=== PATIENT | female | born 1955 | race Caucasian/White ===

== ENCOUNTER → 2023-08-21 16:23 | Outpatient (REF) | payer MEDICARE, OTHER, SELFPAY | LOC: WDC 16:23 | PROVIDERS: ATTENDING PHYSICIAN Student in an Organized Health Care Education/Training Program | DX: R92.8 Other abnormal and inconclusive findings on diagnostic imaging of breast (principal) | CPT/HCPCS: 77061; 77065 ==

== ENCOUNTER → 2023-08-23 12:44 | Outpatient (REF) | payer MEDICARE, OTHER, SELFPAY | LOC: HWRAD 12:44 | PROVIDERS: ATTENDING PHYSICIAN Internal Medicine Cardiovascular Disease; FAMILY PHYSICIAN Student in an Organized Health Care Education/Training Program | DX: E78.00 Pure hypercholesterolemia, unspecified (principal); Z82.49 Family history of ischemic heart disease and other diseases of the circulatory system | CPT/HCPCS: 75571 ==

== ENCOUNTER → 2023-10-04 14:04 | Outpatient (REF) | payer MEDICARE, OTHER, SELFPAY | LOC: DHCBS MAIN 14:04 | PROVIDERS: ATTENDING PHYSICIAN Internal Medicine Cardiovascular Disease; FAMILY PHYSICIAN Student in an Organized Health Care Education/Training Program | DX: R00.2 Palpitations (principal); I10 Essential (primary) hypertension | CPT/HCPCS: 93306 ==

== ENCOUNTER → 2024-01-01 09:44 | Outpatient (REF) | payer MEDICARE, OTHER, SELFPAY | LOC: DHSLP 09:44 | PROVIDERS: ATTENDING PHYSICIAN Internal Medicine Cardiovascular Disease | DX: G47.33 Obstructive sleep apnea (adult) (pediatric) (principal) | CPT/HCPCS: 95800 ==

== ENCOUNTER → 2024-01-15 12:19 | Outpatient (REF) | payer MEDICARE, OTHER, SELFPAY | LOC: WDC 12:19 | PROVIDERS: ATTENDING PHYSICIAN Student in an Organized Health Care Education/Training Program | DX: Z12.31 Encounter for screening mammogram for malignant neoplasm of breast (principal) | CPT/HCPCS: 77063; 77067 ==

== ENCOUNTER 2024-01-29 08:51 | Day surgery (SDC) | payer MEDICARE, OTHER, SELFPAY ==
[2024-01-18 10:33] VITALS: BMI 28.1
[2024-01-29] VITALS (9 sets, daily range): BP systolic 125–180; BP diastolic 65–87; BMI 28.0
--- NOTE | 2024-01-29 10:46 | ITS.CL.ABL ---
Head Of Art - Ablation
Ablation
Procedure Report:
Primary Feather Drying Machine Operator: Dr. Azam Toribio
Procedure Date: 01/29/2024
Patient History:
Patient is a pleasant 68-year-old female with a past medical history significant for hypertension, hypercholesterolemia, coronary artery calcifications, palpitations, and paroxysmal symptomatic atrial fibrillation.
See H&P for complete details.
Indication:
Symptomatic paroxysmal atrial fibrillation
Arrhythmia Specific History:
Prior Medical Therapies for Rate and Rhythm Control:
X Beta-marielos
[ ] Calcium channel-marielos
[ ] Amiodarone
[ ] Dronederone
[ ] Sotalol
[ ] Flecainide
[ ] Dofetilide
X Options limited by bradycardia
[ ] Options limited by comorbid renal disease
Prior Procedural Therapies for AF/AFL:
[ ] Cardioversion
[ ] Pulmonary Vein Isolation
[ ] Posterior Wall Isolation
[ ] Additional lines (Specify)
[ ] Surgical Avalos-MAZE or PVI (Specify)
Procedure Performed:
X AF ablation procedure (41877) -- includes LA/CS pacing, trans-septal, 3D mapping, + ICE
[ ] +IV drug (10907)
[ ] +Other Arrhythmia (19833)
[ ] +Other AF Line/ablation (05960)
Risks and expected recovery has been explained in detail. Alternative options have been explored, and in a shared-decision making fashion we have decided that this was the most appropriate procedure.
Method
NPO status confirmed. Grounding pad applied. Defibrillator pads applied. Continuous surface ECG, pulse oximetry, and blood pressure were monitored. Procedure was performed under general anesthesia, with anesthesia services.
Both groins were clipped, prepped with Chloraprep, and draped in sterile fashion. Time out was called. Local anesthesia administered with bupivacaine. The right and left femoral veins were accessed for catheter placement, using ultrasound guidance,
micro-puncture needle/wire, and modified seldinger technique. 3 sheaths were placed. The following catheters were used:
[ ] Tacticath SE (D/F Curve) ablation catheter
X Viewflex 9Fr ICE catheter
X Inquiry decapolar 6Fr diagnostic catheter
[ ] CRD Hex 6Fr
[ ] Arctic Front Advance Cryoballoon ([ ]28mm[ ]23mm)
[ ] Achieve Advance mapping catheter ([ ]15mm[ ]20mm)
X FlexCath Contour 10 Fr with PulseSelect PFA Catheter
X Advisor HD Grid Mapping Catheter, SE
[ ] Acuson AcuNav 8 Fr ICE catheter
[ ]Other: [ ]
Intracardiac ultrasound (ICE) was carefully advanced into the right atrium to guide sheath placement over a J-wire, catheter placement, guide trans-septal puncture, identify potential complications, identify anatomic structures and ensure proper
contact between ablation catheter and tissue. A trace pericardial effusion posterior/basal LV noted at the start of case which remained unchanged throughout the case and at case completion.
Heparin was given prior to trans-septal puncture. Heparin was given to achieve and maintain a target ACT of 300-400 seconds throughout the procedure.
Trans-septal access was performed under ICE guidance. The trans-septal puncture was performed with a SafeSept wire through a Brockenbrough needle assembly through the steerable sheath. The wire was visualized as it entered the LSPV and system
advanced under ICE guidance and fluoroscopy into the LA. The Brockenbrough needle assembly, SafeSept wire and sheath dilator were removed under negative pressure. LA pressure was measured and recorded.
ICE and 3D mapping was performed to identify relevant cardiac structures. A careful 3D map was created to assess for regions of low-voltage and abnormal electrogram signals using HD grid mapping catheter and PulseSelect catheter. Additional mapping
was performed as outlined below.
Prior to ablation, glycopyrrolate was provided. PulseSelect catheter was advanced over J-wire to the ostium of each vein. Pulmonary vein isolation was performed with ostial and antral lesions in a circumferential manner. Contact was visualized via
EAM, ICE, fluoroscopy, and EGM signals. Following completion of ablation lesions, a post-ablation voltage/activation map was performed in sinus rhythm. Entrance and exit block were confirmed for each vein.
Catheter and sheath were removed from the left atrium and post-ablation intracardiac echo evaluation was consistent with pre-ablation with no changes and no pericardial effusion and there is no left atrial thrombus or left ventricle thrombus seen.
Electrophysiology study was performed. Hemostasis was obtained with Vascade for each sheath and with manual pressure. Protamine was used for reversal.
Estimated Blood Loss
5 mL
Complications
None
Fluoroscopy: 3.5 minutes; 7.16 mGy; DAP 1.14
Baseline Intervals:
Rhythm: SR
MS: 117 ms
QRS: 91 ms
QT: 464 ms
QTc: 468 ms
A-A: 984 ms
R-R: 984 ms
Post-Procedure Intervals:
MS: 130 ms
QRS: 85 ms
QT: 449 ms
QTc: 490 ms
A-A: 860 ms
R-R: 860 ms
AVWB: 300 ms
AERP: 600/270 ms
Recommendations
- Bedrest with straight-leg precautions as ordered
- Anticipate same day discharge if patient meeting clinical metrics
- Resume home medications as indicated
- Ok to resume anticoagulation tonight if patient and groin sites stable
- PPI daily for 30 days
- Plan for follow-up in office as scheduled
Jovon Vázquez DO
Clinical [employer]
cc: Azam Toribio MD; Jaylen Hernandez DO
[2024-01-29 11:44] LABS: ACT-LR - POC 326 Seconds (116-155)
[2024-01-29 12:02] LABS: ACT-LR - POC 335 Seconds (116-155)
[2024-01-29 12:43] LABS: ACT-LR - POC 372 Seconds (116-155)
[2024-01-29 12:50] LABS: ACT-LR - POC 145 Seconds (116-155)
[2024-01-29 13:35] LABS: ACT-LR - POC > 397 Seconds (116-155)
--- NOTE | 2024-01-29 14:55 | W.PN.UPDATE ---
Update Note
Progress Note Update
68 yo WF s/p PVI (same day). She feels good, no cp, sob, mehran clears, voiding, R fem site VASCADE c/d/i no HT, EKG SB/SR. She will continue OAC Eliquis tonight at 7pm at home. She will continue metoprolol and add PPI for 30 days. Activity
restrictions reviewed. She will f/u DCA in 2 mo. She is for d/c home after 4pm if groin stable.
Patient is a pleasant 68-year-old female with a past medical history significant for hypertension, hypercholesterolemia, coronary artery calcifications, palpitations, and paroxysmal symptomatic atrial fibrillation.
See H&P for complete details.
Indication:
Symptomatic paroxysmal atrial fibrillation
Procedure Performed:
X AF ablation procedure (77152) -- includes LA/CS pacing, trans-septal, 3D mapping, + ICE
[ ] +IV drug (93730)
[ ] +Other Arrhythmia (64091)
[ ] +Other AF Line/ablation (20829)
== END 2024-01-29 16:05 | disposition home or self-care (01) ==
LOC: CATH 08:51
PROVIDERS: ATTENDING PHYSICIAN Internal Medicine Cardiovascular Disease; FAMILY PHYSICIAN Student in an Organized Health Care Education/Training Program
DX: I48.0 Paroxysmal atrial fibrillation (principal); I25.10 Atherosclerotic heart disease of native coronary artery without angina pectoris; E78.00 Pure hypercholesterolemia, unspecified; I10 Essential (primary) hypertension; Z85.820 Personal history of malignant melanoma of skin; I48.92 Unspecified atrial flutter; G47.33 Obstructive sleep apnea (adult) (pediatric); Z79.899 Other long term (current) drug therapy; Z87.891 Personal history of nicotine dependence; R00.2 Palpitations
CPT/HCPCS: C1733; C1769; C1766; C1759; C1732; 76937; 85347; 86900; 86901; 93005; 93656; C1760

== ENCOUNTER → 2024-02-20 07:48 | Outpatient (REF) | payer MEDICARE, OTHER, SELFPAY | LOC: RAD 07:48 | PROVIDERS: ATTENDING PHYSICIAN Emergency Medicine | DX: Z00.00 Encounter for general adult medical examination without abnormal findings (principal); Z12.31 Encounter for screening mammogram for malignant neoplasm of breast; N95.1 Menopausal and female climacteric states; M81.0 Age-related osteoporosis without current pathological fracture | CPT/HCPCS: 77080 ==

== ENCOUNTER → 2024-12-08 07:53 | Outpatient (REF) | payer MEDICARE, OTHER, SELFPAY | LOC: RAD 07:53 | PROVIDERS: ATTENDING PHYSICIAN Emergency Medicine | DX: M25.472 Effusion, left ankle (principal); R60.0 Localized edema | CPT/HCPCS: 93970 ==

== ENCOUNTER → 2025-01-15 12:12 | Outpatient (REF) | payer MEDICARE, OTHER, SELFPAY | LOC: WDC 12:12 | PROVIDERS: ATTENDING PHYSICIAN Emergency Medicine | DX: Z12.31 Encounter for screening mammogram for malignant neoplasm of breast (principal) | CPT/HCPCS: 77063; 77067 ==